=== PATIENT | male | born 1955 | race Caucasian/White ===

== ENCOUNTER 2021-12-19 05:48 | Inpatient (IN) ==
--- NOTE | 2021-12-11 11:10 | Anesthesiology Consultation ---
Date of Service December 11, 2021 Assessment & Plan (1) Encounter for pre-operative examination: COVID screening: Per assessment on 12/11: No known COVID-19 positive contacts or current COVID-19 related symptoms. Travel screen negative. Surgeon arranging preop COVID testing. Awaiting results. Chart Review Chart Review: Acceptable Risk for Surgery and Patient NOT seen in Pre Admission Testing History Surgery Operation Date: 12/19/21 07:30 Proposed Procedures p Laparoscopic Robotic Assisted Radical Retropubic Prostatectomy, Possible Open, Possible Pelvic Lymph Node Dissection, Possible Suprapubic Tube Placement - Diego Lewis MD Height/Weight Height: 5 ft 8 in Weight: 74.843 kg Allergies Allergy/AdvReac Type Severity Reaction Status Date / Time Fish Containing Products Allergy Intermediate Swelling Verified 12/11/21 10:15 of Lip/Tongue/Throat Medications Home Medications Medication Instructions Recorded Confirmed Last Taken omeprazole magnesium 2.5 mg oral 10 mg PO HS 11/07/21 12/11/21 Unknown suspension,delayed release (Prilosec) tamsulosin 0.4 mg capsule (Flomax) 0.4 mg PO HS 11/07/21 12/11/21 Unknown multivitamin 1 tab PO QAM 12/11/21 12/11/21 Unknown Past Medical History Medical History Borderline high cholesterol BPH (benign prostatic hyperplasia) GERD (gastroesophageal reflux disease) History of COVID-19 Dx 03/2021 > "Mild" symptoms, resolved Prostate cancer Past Family History Family History Brother Prostate cancer Past Surgical History Surgical History History of cardiac cath 15 yrs ago > no stents History of colonoscopy [place] teeth extracted Social History Smoking Status: Former smoker Do You Dip or Chew Tobacco: No Smoking End Date: age 19 Hx Alcohol Use: Yes Alcohol type: beer alcohol intake frequency: holidays/special occasions only Hx Substance Use: No substance use type: does not use Lab Results Anesthesia Preop Results Results Anesthesia Widget: WBC 5.04 K/uL (4.8-10.8) 11/26/21 Hgb 13.6 g/dL (14.0-18.0) L 11/26/21 Hct 42.3 % (42.0-52.0) 11/26/21 Plt 183 K/uL (130.0-400.0) 11/26/21 Na 142 mmol/L (136-145) 11/26/21 K 3.9 mmol/L (3.5-5.1) 11/26/21 Cl 110 mmol/L H 11/26/21 CO2 27.4 mmol/L (21-32) 11/26/21 BUN 16.0 mg/dL (7-18) 11/26/21 Creat 1.09 mg/dL (0.6-1.4) 11/26/21 Glucose Level 97 mg/dL (70-99) 11/26/21 Urine Color Yellow 11/26/21 Urine Appearance Clear 11/26/21 Urine pH 6.0 (4.5-7.5) 11/26/21 Urine Specific Bishop 1.023 (1.000-1.030) 11/26/21 Urine Protein Negative 11/26/21 Urine Glucose (UA) Negative 11/26/21 Urine Ketones Negative 11/26/21 Urine Blood Negative 11/26/21 Urine Nitrite Negative 11/26/21 Urine Bilirubin Negative 11/26/21 Urine Leukocyte Esterase Negative 11/26/21 Testing Electrocardiogram Date: 11/26/21 SR at 71bpm. LAD. Chest X-Ray Date: 11/26/21 Mild atherosclerotic changes of the aorta. Coarse bilateral interstitial lung markings are present. No focal consolidation, pleural effusion or pneumothorax. No acute cardiopulmonary process identified.
[2021-12-19] MEDS ORDERED: ceFAZolin 2000MG 2,000 MG/15 ML SYR IV SCH (06:00)
[2021-12-19] MEDS ORDERED: LR 15ML/HR IV SCH (06:00)
[2021-12-19] MEDS ORDERED: HEPARIN SOD 5,000 UNIT/0.5 ML VIAL SC SCH (06:00)
--- NOTE | 2021-12-19 06:49 | History & Physical Bridge Note ---
Date of Service December 19, 2021 History & Physical Bridge Note I have examined the patient, reviewed the History & Physical and in the interval since the performance of the History & Physical I have noted the following changes of clinical significance: no changes noted
--- NOTE | 2021-12-19 07:09 | History & Physical Report ---
Date of Service December 19, 2021 Assessment & Plan (1) Prostate cancer: Plan: We reviewed the plan for robot-assisted radical prostatectomy and possible bilateral pelvic lymph node dissection. We reviewed the risks and benefits of the surgery. He expressed understanding and agreement. We will proceed with surgery. History of Present Illness Primary Care Provider: Francisco Moramarifer This is a 66-year-old male with history of prostate cancer. He was recently seen in the urology office where we discussed robot-assisted radical prostatectomy. He presents to the OR today for the surgery. He has no changes in his health since our office visit. Allergies Allergy/AdvReac Type Severity Reaction Status Date / Time Fish Containing Products Allergy Intermediate Swelling Verified 12/19/21 06:21 of Lip/Tongue/Throat Home Medications Medication Instructions Recorded Confirmed Type omeprazole magnesium 2.5 mg oral 10 mg PO HS 11/07/21 12/19/21 History suspension,delayed release (Prilosec) tamsulosin 0.4 mg capsule (Flomax) 0.4 mg PO HS 11/07/21 12/19/21 History multivitamin 1 tab PO QAM 12/11/21 12/19/21 History Past Med/Surg History Medical History Borderline high cholesterol BPH (benign prostatic hyperplasia) GERD (gastroesophageal reflux disease) History of COVID-19 Dx 03/2021 > "Mild" symptoms, resolved Prostate cancer Surgical History History of cardiac cath 15 yrs ago > no stents History of colonoscopy [place] teeth extracted Family History Brother Prostate cancer Social History Smoking Status: Former smoker Smoking End Date: age 19; Second Hand Exposure: No; Do You Dip or Chew Tobacco: No; Tobacco Cessation Education Requested by Patient: No Hx Alcohol Use: Yes Alcohol type: beer Hx Substance Use: No Preferred Language: Hebrew Communication Ability: Effective Post Form Remover Required: No Beliefs That Will Affect Care: None marital status: Current Living Situation: Spouse Other Information That Helps Us Care for You: No Feels Safe at Home: Yes Safety Concerns: Feels Safe At This Time Assistive Devices: Denture - Upper, Denture - Lower, Glasses and Hearing Aid - Bilateral Review of Systems 14 point review of systems negative except for otherwise indicated. Physical Exam Constitutional: well developed and well nourished; no acute distress Eyes: + anicteric sclerae; pupils not irregular Respiratory: normal respiratory effort; no respiratory distress, does not use accessory muscles and no cough Cardiovascular: well perfused Gastrointestinal (Abdomen): Inspection/Auscultation: abdomen normal to inspection; abdomen not distended Musculoskeletal: Extremities: extremities normal to inspection Skin: normal turgor; no rashes and no lesions Neurologic: moves all extremities and awake Psychiatric: Orientation: alert and oriented x 3 Results & Data ([facility]) Vital Signs (Past 12 Hours) Vital Signs Temp Pulse Resp BP Pulse Ox O2 Del Method 12/19/21 06:23 36.7 C 60 20 128/78 98 Room Air
[2021-12-19] MEDS ORDERED: LABETALOL HCL IV 5 MG/ML 20ML IV PRN (07:28)
[2021-12-19] MEDS ORDERED: ONDANSETRON INJ 2 MG/ML 2 ML VIAL IV PRN ×2 (07:28→16:01)
[2021-12-19] MEDS ORDERED: HYDROmorphone INJ 1 MG/ML SYRINGE IV PRN (07:28)
[2021-12-19] MEDS ORDERED: ATROPINE SULFATE 0.1 MG/ML 10ML SYR IV PRN (07:28)
[2021-12-19] MEDS ORDERED: ePHEDrine sulfate 50 MG/ML AMP IV PRN (07:28)
[2021-12-19] MEDS ORDERED: fentaNYL citrate 100 MCG/2 ML VIAL IV PRN (07:28)
[2021-12-19] MEDS ORDERED: MEPERIDINE HCL 25 MG/ML CARP/VIAL IV PRN (07:28)
[2021-12-19] MEDS ORDERED: PHENYLEPHRINE 100MCG/ML 5ML SYR IV PRN (07:28)
[2021-12-19] MEDS ORDERED: MIDAZOLAM HCL 1 MG/ML 2ML VIAL ONE (08:42)
[2021-12-19] MEDS ORDERED: fentaNYL citrate 100 MCG/2 ML VIAL ONE (08:42)
[2021-12-19] MEDS ORDERED: PROPOFOL IV EMULSION 10 MG/ML 20 ML VIAL IV ONE (08:44)
[2021-12-19] MEDS ORDERED: BELLADONNA/OPIUM SUPP 60 MG SUPP PR ONE (08:45)
[2021-12-19] MEDS ORDERED: ROCURONIUM BROMIDE 10 MG/ML 5 ML VIAL IV ONE ×3 (08:48→12:13)
[2021-12-19] MEDS ORDERED: GLYCOPYRROLATE 0.2 MG/ML VIAL ONE (08:49)
[2021-12-19] MEDS ORDERED: LIDOCAINE 2% MPF LOCAL 5 ML VIAL INFIL ONE (08:49)
[2021-12-19] MEDS ORDERED: NEOSTIGMINE METHYLSULFATE 1 MG/ML 10ML VIAL ONE (08:49)
[2021-12-19] MEDS ORDERED: DEXAMETHASONE SOD INJ 4 MG/ML VIAL ONE (08:49)
[2021-12-19] MEDS ORDERED: ONDANSETRON INJ 2 MG/ML 2 ML VIAL ONE (08:49)
[2021-12-19] MEDS ORDERED: BUPIVACAINE 0.5 % 5 MG/1 ML MPF 30ML VIAL ONE (09:01)
[2021-12-19] MEDS ORDERED: FLOSEAL HEMOSTATIC MATRIX 10ML TOP ONE (09:56)
[2021-12-19] MEDS ORDERED: SURGICEL ABSORB HEMOSTAT 2IN X 14IN TOP ONE (09:56)
[2021-12-19] MEDS ORDERED: HYDROmorphone INJ 2 MG/ML SYR/VIAL ONE (14:00)
--- NOTE | 2021-12-19 14:46 | Operative Report ---
PG Post Operative Report Pre & Post Diagnosis Operation Date: 12/19/21 07:30 Pre-Op Diagnosis: Prostate Cancer Post-Op Diagnosis: Prostate Cancer I identified the patient and participated in the time-out.: Yes Procedure Operation Date: 12/19/21 07:30 Actual Procedures p Laparoscopic Robotic Assisted Radical Retropubic Prostatectomy - Diego Lewis MD Surgeon Diego Lewis MD Resident Assistant Cna DANISH Singer Estimated Blood Loss 150 Findings Consistent with Post-Op Diagnosis Specimens Periprostatic fat Prostate, vas deferens and seminal vesicles Drains Espino catheter per urethra Anesthesia Type General Complications none Disposition Accompanied Patient To Recovery: Yes Disposition: Recovery Room Indications Is a 66-year-old male recently found to have prostate cancer. He after thorough discussion of radical prostatectomy, radiation therapy or active surveillance, he elected for radical prostatectomy. He presents to the OR today for this violeta george. Description of Procedure The patient was identified in the preoperative holding area and informed consent was confirmed. He was then brought to the operating room where general anesthesia was initiated. He was placed supine on the operating room table with all pressure points appropriately padded. His abdomen and genitalia were prepped and draped in the usual sterile fashion and a timeout was performed. A 2 cm incision was made above the umbilicus and then a Veress needle was used to obtain access to the abdomen. Proper position was confirmed with the drop test and low initial insufflation pressure. The abdomen was insufflated with CO2 to a pressure of 12 mmHg. An 8 mm robotic port was placed in the incision and the robotic camera was inserted. The abdominal cavity was surveyed, demonstrating no injury to any of the abdominal structures. There were some adhesions in the left lower quadrant. The remaining robotic ports were placed under direct visualization, with 2 robotic ports on the left side and 1 robotic port on the right. A 12 mm insurance sales assistant port was placed on the right side as well, and a 5 mm insurance sales assistant port was placed in the right upper quadrant. The robot was then docked. A lysis of adhesions was performed in the left lower quadrant to free up the sigmoid and expose the area where we would be working on the prostate. Using electrocautery, the bladder was then dropped from the anterior wall of the abdomen, exposing the space of Retzius. This dissection was carried down to expose the pelvic brim and subsequently the anterior surface of the prostate and the endopelvic fascia. The fat overlying the anterior of the prostate was removed and sent for pathologic analysis, labeled as 'periprostatic fat'. The endopelvic fascia was then divided on each side to expose the lateral aspects of the prostate and the lateral aspects of the pedicles. On the right side there were more blood vessels then normal, and the tissue was somewhat more adhesed than I would expect. I attempted to spare the vessels as much as possible, but some needed to be divided with electrocautery. 3-0 V-Loc suture was used to ligate the dorsal venous complex to prevent backbleeding. The fourth arm of the robot was then used to put some gentle traction on the bladder, and the bladder neck was identified. Using electrocautery, the anterior bladder neck was dissected to expose the Espino catheter, whose tip was removed from the bladder and held anteriorly. The posterior bladder neck dissection was then completed. At this point bilateral vas deferens were exposed and isolated. The vas deferens were cauterized and then divided. Bilateral seminal vesicles were dissected out as well. He had notably enlarged seminal vesicles. Denonvilliers fascia was then divided and the posterior prostate dissection was carried up as far as possible toward the urethra. The pedicles were then divided using combination of clips and sharp dissection, trying to use minimal electrocautery. A partial nerve sparing approach was used on both sides. Attention was turned anteriorly and the dorsal venous complex was divided using sharp dissection and electrocautery. There was some persistent dorsal venous bleeding so the DVC was reclosed with 3-0 V lock suture. The urethra was isolated and then divided sharply. At this point, the prostate was free and was placed in a specimen bag. Preoperative risk calculator had estimated his risk of lymph node disease at 1%. There were no grossly suspicious lymph nodes on survey. Taking these two factors into account, a lymph node dissection was not performed. The pelvis was inspected and meticulous hemostasis was ensured. Double-armed V- Loc suture was then used to re-anastomose the bladder neck with the urethra. Once this was complete, the anastomosis was tested by instilling 120 mL of normal saline into the bladder. Satisfied that the anastomosis was watertight, the catheter balloon was inflated with 10 mL of normal saline. The robot was then undocked. The supraumbilical incision was extended and the prostate was extracted. 0 Vicryl suture was then used to close the fascia at this incision. All skin incisions were closed with 4-0 Monocryl suture and then a layer of Dermabond was applied. The patient was then awakened from anesthesia and was brought to the PACU in stable condition. I attest to the content of the Intraoperative Record and any orders documented therein. Any exceptions are noted below.
--- NOTE | 2021-12-19 15:57 | Anesthesiology Progress Note ---
Date of Service December 19, 2021 Anesthesia Post Procedure Vital Signs Vital Signs: Temp Pulse Resp BP Pulse Ox O2 Del Method O2 Flow Rate 12/19/21 14:55 66 15 104/63 93 Oxymask 5 12/19/21 15:45 65 13 106/58 L 96 Oxymask 5 12/19/21 15:35 36.2 C L 62 14 92/65 L 96 Oxymask 5 12/19/21 15:25 60 17 106/67 96 Oxymask 5 12/19/21 15:15 60 13 112/63 97 Oxymask 5 12/19/21 15:05 62 14 98/59 L 97 Oxymask 5 12/19/21 14:45 61 19 110/63 97 Oxymask 5 12/19/21 14:37 36 C L 62 13 107/59 L 95 Oxymask 5 12/19/21 06:23 36.7 C 60 20 128/78 98 Room Air Transfer of Care Handoff Completed per policy Notes Mental Status: alert / awake / arousable Patient Amnestic to Procedure: Yes Nausea / Vomiting: adequately controlled Pain: adequately controlled Airway Patency, RR, SpO2: stable & adequate BP & HR: stable & adequate Hydration State: stable & adequate Anesthetic Complications: no major complications apparent
[2021-12-19] MEDS ORDERED: POLYETHYLENE (MIRALAX) 17 GM PACK PO PRN (16:01)
[2021-12-19] MEDS ORDERED: oxyCODONE HCL IR 5 MG TAB (IMMEDIATE RELEASE) PO PRN ×2 (16:01)
[2021-12-19] MEDS ORDERED: MoRPHine SULFATE 2 MG/ML CARP IV PRN ×2 (16:01→16:03)
[2021-12-19] MEDS ORDERED: IBUPROFEN 600 MG TAB PO PRN (16:01)
[2021-12-19] MEDS: LACTATED RINGER'S 1,000 ML IV SCH (17:34)
[2021-12-19] MEDS: ceFAZolin 2000MG 2,000 MG/15 ML SYR IV SCH (18:47)
[2021-12-19] MEDS ORDERED: HEPARIN SOD 5,000 UNIT/0.5 ML VIAL SQ SCH (21:00)
[2021-12-19] MEDS ORDERED: PANTOprazole 40 MG TAB PO SCH (21:00)
[2021-12-19] MEDS: DOCUSATE SODIUM 100 MG CAP PO SCH (21:04)
[2021-12-19] MEDS: ACETAMINOPHEN 325 MG TAB PO SCH (21:04)
[2021-12-19] MEDS: HEPARIN SOD 5,000 UNIT/0.5 ML VIAL SQ SCH (21:07)
[2021-12-20] MEDS: ceFAZolin 2000MG 2,000 MG/15 ML SYR IV SCH (00:37)
[2021-12-20] MEDS ORDERED: COUGH DROP (SUGAR FREE) LOZ 24 LOZ/1 BOX BUCCAL ONE (02:35)
[2021-12-20] MEDS ORDERED: COUGH DROP (SUGAR FREE) LOZ 24 LOZ/1 BOX BUCCAL STA (02:36)
[2021-12-20] MEDS: LACTATED RINGER'S 1,000 ML IV SCH (04:02)
[2021-12-20] MEDS: ACETAMINOPHEN 325 MG TAB PO SCH ×2 (04:02→08:21)
[2021-12-20 08:11] LABS: Basophils # (auto) 0.01 K/uL (0-0.2); Basophils % (auto) 0.1 %; Hematocrit (blood only) 35.1 % (40.1-51.0); Hemoglobin 11.7 g/dl (14.0-18.0); Immature Granulocytes # (auto) 0.06 K/uL (0.00-0.02); Immature Granulocytes % (auto) 0.4 %; Lymphocytes # (auto) 0.94 K/uL (1.2-3.4); Lymphocytes % (auto) 6.4 %; Mean Corpuscular Hemoglobin 29.5 pg (25.0-34.0); Mean Corpuscular Hgb Conc 33.3 g/dL (32.0-36.0); Mean Corpuscular Volume 88.4 fL (80.0-100.0); Monocytes # (auto) 1.24 K/uL (0.24-0.82); Monocytes % (auto) 8.4 %; Neutrophils # (auto) 12.43 K/uL (1.4-6.5); Neutrophils % (auto) 84.7 %; Platelet Count 171 K/uL (130-400); RDW Coefficient of Variation 13.2 % (11.5-14.5); RDW Standard Deviation 43.2 fL (36.4-46.3); Red Blood Count 3.97 M/uL (4.63-6.08); White Blood Count 14.68 K/ul (4.8-10.8)
[2021-12-20] MEDS: HEPARIN SOD 5,000 UNIT/0.5 ML VIAL SQ SCH (08:22)
[2021-12-20] MEDS: DOCUSATE SODIUM 100 MG CAP PO SCH (08:22)
[2021-12-20 08:36] LABS: BUN Creatinine Ratio 17.9 (10-20); Calcium 8.4 mg/dl (8.5-10.1); Creatinine Clr Calc Pharmacy 64.5 ml/min; Est GFR (African American) 83.2 ml/min; Est GFR (Non-African American) 71.8 ml/min; Potassium 4.2 mmol/L (3.5-5.1)
--- NOTE | 2021-12-20 09:47 | Urology Progress Note ---
Date of Service December 20, 2021 Assessment & Plan (1) Prostate cancer: Plan: Postop day #1 status post robotic prostatectomy Doing very well Continue ambulation and activity Espino teaching Plan for discharge home later this morning Admission and Anticipated Discharge Date Admission Date: December 19, 2021 Subjective Subjectively feeling very well Has had no pain overnight He has been out of bed and ambulatory Is tolerating a regular diet now Is very anxious to go home Physical Exam Physical Exam: Urine clear Abdomen soft, no bruising, incisions appropriate Results & Data ([facility]) Vital Signs (Past 12 Hours) Vital Signs Temp Pulse Resp BP Pulse Ox O2 Del Method 12/20/21 06:32 36.8 C 58 L 18 128/65 94 Room Air 12/20/21 03:09 37.1 C 82 16 128/53 L 91 Room Air 12/19/21 22:58 37.1 C 71 16 127/64 94 Room Air PG Care Time/CCT Total # of Minutes Spent Total Time Spent with Patient: Total time spent is greater than 50% in coordination of care (as documented) at patient's floor/unit and/or counseling patient: Coding Level of Care Code None Diagnoses Prostate cancer C61
--- NOTE | 2021-12-27 16:24 | Discharge Summary ---
Date of Service December 27, 2021 Admission HPI Per Admitting Provider This is a 66-year-old male with history of prostate cancer. He was recently seen in the urology office where we discussed robot-assisted radical prostatectomy. He presented to the OR on 12/19/2021 for robot-assisted radical prostatectomy. Please see operative report for full details. He was admitted postoperatively in good condition. Admission Exam Per Admitting Provider Constitutional well developed and well nourished; no acute distress Eyes + anicteric sclerae; pupils not irregular Respiratory normal respiratory effort; no respiratory distress, does not use accessory muscles and no cough Cardiovascular well perfused Gastrointestinal (Abdomen) Inspection/Auscultation: abdomen normal to inspection; abdomen not distended Musculoskeletal Extremities: extremities normal to inspection Skin normal turgor; no rashes and no lesions Neurologic moves all extremities and awake Psychiatric Orientation: alert and oriented x 3 Principal Diagnosis Prostate cancer Discharge Exam Physical Exam:Urine clear Abdomen soft, no bruising, incisions appropriate Discharge Data Allergies Allergy/AdvReac Type Severity Reaction Status Date / Time Fish Containing Products Allergy Intermediate Swelling Verified 12/27/21 08:54 of Lip/Tongue/Throat Procedures Performed Operation Date: 12/19/21 07:30 Actual Procedures p Laparoscopic Robotic Assisted Radical Retropubic Prostatectomy(Not Applicable) - Diego Lewis MD Hospital Course (1) Prostate cancer: He underwent robot-assisted radical prostatectomy on 12/19/2021. On postop day 1 he was tolerating a diet, ambulating well and his pain was controlled. He was discharged home in good condition. Total Time Total Time Spent Total Time Spent (In Minutes): 15 Discharge Plan Discharge Items Patient Disposition: Home - Self-Care Reason For Visit: Prostate Cancer Discharge Diagnosis: Prostate Cancer Activity: Per Instructions section Lifting: No more than 25 pounds Bathing Comment: Ok to shower. No tub baths or soaks. Sexual Activity: Wait until after follow-up appointment Exercise/Sports: Wait until after follow-up appointment Driving/Machine Use: Do not drive if taking presciption pain medication. Non-emergency contact: Surgeon and Urologist Call non-emergency contact if: you have any medication questions, your pain is not controlled, your pain is worsening, you have a fever, your wound has increased redness, your wound has increased drainage and your wound pain has increased Follow-up/Referrals: Diego Lewis MD [Physician] - ( office will call patient with appointment date and time) Francisco Martins [Primary Care Provider] - Diet: Regular Addtl Attending Provider Instructions: Please take all medications as prescribed and keep all follow-ups as scheduled. Please call our office at [phone] with any questions, concerns or need to reschedule appointments for any reason. We are happy to assist you. The Urology office will contact you to arrange your follow-up appointments. We have sent an antibiotic to your pharmacy of choice. Please take the antibiotic 1 hour prior to your scheduled catheter removal appointment. Activity: We recommend having someone with you for the first few days after surgery to help care for you. For the first 2 weeks after surgery, we would like you to get up and walk around your house. However, we recommend limit physical activity that would increase your heart rate. This will allow your body to rest and heal. Take naps if you feel tired. Don't lift anything heavier than 25 pounds, mow the law or ride a bicycle until your follow-up appointment. Please avoid long car rides. Home Care: Unless directed otherwise, drink 6 to 8 glasses of water a day (enough to keep your urine light colored). This will also help keep a healthy flow of urine. We recommend using a stool softener for the first two weeks to avoid constipation. Espino Catheter or Suprapubic Catheter care: Keep the catheter well secured with either a leg back or leg strap with large bag. Empty your bag when it's about half full. You may notice some blood in the bag. This is normal after surgery and while the catheter is in place. Use mild soap (such as Dove or Dial) and water to wash the catheter and the head of your penis daily, or more frequently if needed. Return to your normal diet, we encourage good protein intake to promote healing. You may shower as normal. Please avoid tub baths or soaking until catheter removed and incisions well healed. Wearing sweat pants while you have the catheter is recommended, they will be more comfortable. Follow-up Your follow up appointments for having your catheter removed, and follow up with your physician should already be scheduled. If you have any questions regarding this, please contact our office. Your final pathology report will be discussed at your physician follow-up appointment. Call [facility] at [phone] right away if you have any of the following: Chest pain or trouble breathing (call 911 or go to the hospital) Fever of 101F or higher, uncontrolled vomiting Heavy bleeding, clots, or bright red blood from the catheter Catheter that falls out or stops draining Foul-smelling discharge from your catheter Redness, swelling, warmth, or increased pain at your incision site Drainage, pus, or bleeding from your incision Pending Studies at Discharge: Yes (pathology) Stand-Alone Forms: My [facility], Opioid Pain Management, Smoking Cessation Medications and DC Order Prescriptions: New oxycodone 5 mg tablet 5 mg PO Q8H PRN (Reason: pain) Qty: 7 0RF ciprofloxacin HCl [Cipro] 500 mg tablet 500 mg PO ONCE Qty: 1 0RF Rx Instructions: Please take 1 hour prior to catheter removal Continued Prilosec 2.5 mg susp,delayed release for recon 10 mg PO HS multivitamin Tablet 1 tab PO QAM Discontinued tamsulosin [Flomax] 0.4 mg capsule 0.4 mg PO HS Discharge Orders: Discharge Order (Routine); Ordered 12/20/21 Ordered By: Leonila Lopez Admission Data Admit Date/Time: 12/19/21 07:09 Attending Provider: Diego Lewis Admit Provider: Diego Lewis Primary Care Provider: Francisco Martins Other Interventions: Discharge Summary Assessment (RN) Last Done: 12/20/21 11:07 Coding Level of Care Code D/C DAY MANAGEMENT <30 MINS Diagnoses Prostate cancer C61
== END 2021-12-20 11:41 | disposition home or self-care (01) | DRG 708 ==
LOC: ASU 05:48 → PACUINP 07:09 → 3N 16:36